=== PATIENT | female | born 1995 | race Caucasian/White ===

== ENCOUNTER 2016-12-15 14:43 | Emergency (ER) | payer BC ==
[~2016-12-15] VITALS: Ht 170.1 cm; Wt 85.7 kg
[~2016-12-15 14:43] MED LIST: AMOXICILLIN500 MG PO; NKHM
[2016-12-15 15:43] LABS: BILIRUBIN NEGATIVE (NEGATIVE); BLOOD NEGATIVE (NEGATIVE); CLARITY CLEAR (CLEAR); COLOR YELLOW (YELLOW); GLUCOSE NEGATIVE (NEGATIVE); KETONE NEGATIVE (NEGATIVE); LEUKO ESTERASE NEGATIVE (NEGATIVE); NITRITE NEGATIVE (NEGATIVE); PROTEIN NEGATIVE (NEGATIVE); SPECIFIC GRAVITY 1.015 (1.005-1.030); UROBILINOGEN 0.2 E.U./dl (0.2-1.0)
[2016-12-15 15:50] LABS: BACTERIA 1+; RBC 0-2 rbc/hpf (0-2); URINE REFLEX COMMENT NO (NO)
[2016-12-15] MEDS ORDERED: NAPROSYN500 MG PO (16:29)
[2016-12-15] MEDS ORDERED: CYCLOBENZAPRINE10 MG PO (16:29)
== END 2016-12-15 16:37 | disposition home or self-care (01) ==
LOC: ED 14:43
PROVIDERS: Nurse Practitioner Family
DX: S29.011A Strain of muscle and tendon of front wall of thorax, initial encounter (principal); X58.XXXA Exposure to other specified factors, initial encounter; Y93.89 Activity, other specified; Y92.9 Unspecified place or not applicable; Y99.9 Unspecified external cause status

== ENCOUNTER → 2020-04-15 | Outpatient (CLI) | payer OTHER ==
[~2020-04-15] MED LIST changes: +CYCLOBENZAPRINE10 MG PO; +NAPROSYN500 MG PO
== END | disposition home or self-care (01) ==
LOC: US 16:28
PROVIDERS: ATTEND Nurse Practitioner Women's Health
DX: Z34.81 Encounter for supervision of other normal pregnancy, first trimester (principal); Z3A.01 Less than 8 weeks gestation of pregnancy

== ENCOUNTER → 2020-04-22 | Outpatient (CLI) | payer OTHER | END | disposition home or self-care (01) | LOC: US 10:50 | PROVIDERS: ATTEND Obstetrics & Gynecology | DX: O36.8310 Maternal care for abnormalities of the fetal heart rate or rhythm, first trimester, not applicable or unspecified (principal); Z3A.01 Less than 8 weeks gestation of pregnancy ==

== ENCOUNTER → 2020-04-27 | Outpatient (CLI) | payer OTHER | END | disposition home or self-care (01) | LOC: US 12:00 | PROVIDERS: ATTEND Obstetrics & Gynecology | DX: O02.1 Missed abortion (principal) ==

== ENCOUNTER 2020-09-12 20:27 | Emergency (ER) | payer OTHER ==
[~2020-09-12] VITALS: Ht 175.2 cm; Wt 77.1 kg
== END 2020-09-12 22:46 | disposition home or self-care (01) ==
LOC: ED 20:27
DX: S96.912A Strain of unspecified muscle and tendon at ankle and foot level, left foot, initial encounter (principal); F17.200 Nicotine dependence, unspecified, uncomplicated; Z79.899 Other long term (current) drug therapy; W01.0XXA Fall on same level from slipping, tripping and stumbling without subsequent striking against object, initial encounter; Y93.89 Activity, other specified; Y92.098 Other place in other non-institutional residence as the place of occurrence of the external cause; Y99.8 Other external cause status

== ENCOUNTER → 2020-12-23 | Outpatient (CLI) | payer SELFPAY | END | disposition home or self-care (01) | LOC: US 08:59 | PROVIDERS: ATTEND Nurse Practitioner Women's Health | DX: T83.32XA Displacement of intrauterine contraceptive device, initial encounter (principal); N93.9 Abnormal uterine and vaginal bleeding, unspecified; X58.XXXA Exposure to other specified factors, initial encounter; Y93.89 Activity, other specified; Y92.89 Other specified places as the place of occurrence of the external cause; Y99.8 Other external cause status ==